=== PATIENT | male | born 2000 | race American Indian/Alaskan Native ===

== ENCOUNTER 2021-08-14 13:37 | Emergency (ER) | payer SELFPAY ==
[2021-08-14 15:20] VITALS: BP 122/76
--- NOTE | 2021-08-14 15:21 | Event Note ---
ED Screening Note ED Screening Note: TRAUMA YESTERDAY TO LEFT MANDIBLE AREA SEEN AT [facility]- TOLD CAN DO NOTHING HE COMES HERE LEFT FACIAL SWELLING ABC INTACT VSS This initial assessment/diagnostic orders/clinical plan/treatment(s) is/are subject to change based on patients health status, clinical progression and re- assessment by fellow clinical providers in the ED. Further treatment and workup at subsequent clinical providers discretion. Patient/guardian urged not to elope from the ED as their condition may be serious if not clinically assessed and managed. Initial orders include: FAMILY IS TAKING TO [facility] FOR IMMED MAX FACE EVAL
== END 2021-08-16 09:46 | disposition left against medical advice (07) ==
LOC: ED 13:37
DX: S09.93XA Unspecified injury of face, initial encounter (principal); Z53.21 Procedure and treatment not carried out due to patient leaving prior to being seen by health care provider; X58.XXXA Exposure to other specified factors, initial encounter; Y93.89 Activity, other specified; Y92.89 Other specified places as the place of occurrence of the external cause; Y99.8 Other external cause status